=== PATIENT | male | born 1985 | race Caucasian/White ===

== ENCOUNTER 2016-10-28 21:14 | Emergency (ER) | payer SELFPAY ==
[2016-10-28 21:24] VITALS: TEMP 98
--- NOTE | 2016-10-28 21:33 | C.PDOC ---
History Of Present Illness 30 year old male who presents to the ER with a complaint of left hand pain since Wednesday after punching a window. Patient is left hand dominant, denies changes in sensation. No other injury. Time Seen by Provider: 10/28/16 21:29 Chief Complaint (Nursing): Finger,Hand,&Wrist History Per: Patient History/Exam Limitations: no limitations Onset/Duration Of Symptoms: Days Current Symptoms Are (Timing): Still Present Exacerbating Factor(s): Strenuous Use Of Affected Area Recent travel outside of the [place]: No Past Medical History Reviewed: Historical Data, Nursing Documentation, Vital Signs Vital Signs: Last Vital Signs Temp 98 F 10/28/16 23:09 Pulse 80 10/28/16 23:09 Resp 20 10/28/16 23:09 BP 120/80 10/28/16 23:09 Pulse Ox 98 10/28/16 23:09 - Medical History PMH: Hypothyroidism Surgical History: No Surg Hx - [facility] Procedures CLOSURE SKIN & SUBCUTANEOUS NEC (10/30/12) Family History: States: Unknown Family Hx - Social History Hx Tobacco Use: No Hx Alcohol Use: Yes Hx Substance Use: No - Immunization History Hx Tetanus Toxoid Vaccination: No Hx Influenza Vaccination: No Hx Pneumococcal Vaccination: No Review Of Systems Musculoskeletal: Positive for: Hand Pain Neurological: Negative for: Weakness, Numbness Physical Exam - Physical Exam Appears: Well, Non-toxic, No Acute Distress Skin: Warm, Dry Head: Atraumatic, Normacephalic Eye(s): bilateral: Normal Inspection, EOMI Nose: Normal Oral Mucosa: Moist Neck: Normal ROM, Supple Chest: Symmetrical Respiratory: No Accessory Muscle Use Extremity: Normal ROM (x4), Tenderness (to 4th and 5th metacarpal w/ mild swelling and ecchymosis), Capillary Refill (<2 sec) Extremity: Bilateral: Normal ROM Pulses: Left Radial: Normal, Right Radial: Normal Neurological/Psych: Oriented x3, Normal Speech, Normal Cognition, Normal Motor, Normal Sensation ED Course And Treatment O2 Sat by Pulse Oximetry: 97 (Room air) Pulse Ox Interpretation: Normal - Other Rad Left hand x-ray X-Ray: Interpreted by Me, Viewed By Me Interpretation: (+) fifth metacarpal fx with angulation Progress Note: Left hand x-ray ordered. Ulnar gutter splint applied by technology recruiter, reviewed by me; patient instructed to follow up with hand specialist in 1-2 days. Disposition - Disposition Referrals: Ubaldo Parada MD [Staff Provider] - Disposition: HOME/ ROUTINE Disposition Time: 21:51 Condition: STABLE Additional Instructions: Rest, ice and elevate the area. FOllow up with hand specialist in 1-2 days. Instructions: Hand Fracture (ED) Forms: [facility] (Spanish), Work Excuse - Clinical Impression Clinical Impression: Fracture of fifth metacarpal bone - Scribe Statement The provider has reviewed the documentation as recorded by the Scribelzbieta Richardson All medical record entries made by the Scribe were at my direction and personally dictated by me. I have reviewed the chart and agree that the record accurately reflects my personal performance of the history, physical exam, medical decision making, and the department course for this patient. I have also personally directed, reviewed, and agree with the discharge instructions and disposition.
[2016-10-28 23:11] VITALS: BP 120/80; PULSE 80; RESP 20
[2016-10-28 23:39] VITALS: O2SAT 97
--- NOTE | 2016-10-29 08:03 | RAD ---
PROCEDURE: Left Hand Radiographs. HISTORY: pain COMPARISON: None. FINDINGS: BONES: Distal 5th metacarpal metaphyseal fracture, dorsal apical angulation without intra-articular extension noted JOINTS: Normal. No osteoarthritic changes. SOFT TISSUES: Dorsal and ulnar soft tissue swelling OTHER FINDINGS: None. IMPRESSION: Fifth metacarpal fracture
== END 2016-10-28 23:09 | disposition home or self-care (01) ==
LOC: C.ER 21:14
DX: S62.307A Unspecified fracture of fifth metacarpal bone, left hand, initial encounter for closed fracture (principal); W22.09XA Striking against other stationary object, initial encounter; Y92.89 Other specified places as the place of occurrence of the external cause

== ENCOUNTER 2016-10-29 16:33 | Emergency (ER) | payer SELFPAY ==
[2016-10-29 16:53] VITALS: O2SAT 96
--- NOTE | 2016-10-29 17:28 | C.PDOC ---
History Of Present Illness 30 y/o male presents to ED requesting new ortho referral. Pt was seen 10/28 with (+) left hand fracture. Pt states when he called the referral number, he was advised the office does not take his insurance. Denies new symptoms. REQUESTING NEW ORTHO REFERRAL. SEEN 10/28 +L HAND FX. PS WHEN CALLED HAND REFERRAL NUMBER, WAS ADVISED OFFICE DOES NOT TAKE INSURANCE. DENIES NEW SX EXAM NAD EXT LUE +ULNAR GUTTER SPLINT IN PLACE TO MID FOREARM. NO CYANOSIS NO PARESTHESIA Chief Complaint (Nursing): Upper Extremity Problem/Injury History Per: Patient History/Exam Limitations: no limitations Severity: Mild Recent travel outside of the [place]: No Past Medical History Reviewed: Historical Data, Nursing Documentation, Vital Signs Vital Signs: Last Vital Signs Temp 97.8 F 10/29/16 17:35 Pulse 65 10/29/16 17:35 Resp 18 10/29/16 17:35 BP 122/59 L 10/29/16 17:35 Pulse Ox 96 10/29/16 17:35 - Medical History PMH: Hypothyroidism - [facility] Procedures CLOSURE SKIN & SUBCUTANEOUS NEC (10/30/12) Family History: States: Unknown Family Hx - Social History Hx Tobacco Use: No Hx Alcohol Use: Yes Hx Substance Use: No - Immunization History Hx Tetanus Toxoid Vaccination: No Hx Influenza Vaccination: No Hx Pneumococcal Vaccination: No Review Of Systems Constitutional: Negative for: Fever, Chills Neurological: Negative for: Weakness, Numbness Physical Exam - Physical Exam Appears: Non-toxic, No Acute Distress Skin: Warm, Dry, No Rash Head: Atraumatic, Normacephalic Extremity: Other (LUE (+) ulnar gutter slint in place to mid forearm. No cyanosis. No paresthesia.) Neurological/Psych: Oriented x3, Normal Speech, Normal Cognition, Normal Motor, Normal Sensation ED Course And Treatment O2 Sat by Pulse Oximetry: 96 (room air) Pulse Ox Interpretation: Normal Orthopedic Time Performed: 17:27 Time Out: Side verified, Site verified, Patient ID confirmed Procedure: Splint Other:: ULNAR GUTTER Location: Left, Hand Consent obtained: Verbal Performed by: Attending Physician Diagnosis: Fracture Capillary refill: Normal Distal Sensation: Normal Distal Motor Function: Normal Capillary Refill: Normal Compartment: Normal Distal Sensation: Normal Distal Motor Function: Normal Notes:: SPLINT REAPPLIED TO IMMOBILIZE FULL LENGTH FOREARM Progress - Data Reviewed Data Reviewed: Old records Disposition Counseled Patient/Family Regarding: Diagnosis, Need For Followup - Disposition Referrals: [facility] [Outside] [facility] [Outside] Edna Landry MD [Staff Provider] - Disposition: HOME/ ROUTINE Disposition Time: 17:28 Condition: IMPROVED Additional Instructions: FOLLOW UP CLINIC FOR FURTHER MANAGEMENT Prescriptions: oxyCODONE/Acetaminophen [Percocet 5/325 mg Tab] 1 ea PO QID #8 tab Forms: [employer] (Maori), General Discharge Instructions - Clinical Impression Clinical Impression: Referral needed, Fracture of bone - Scribe Statement The provider has reviewed the documentation as recorded by the Yohan King Provider Attestation: All medical record entries made by the Yohan were at my direction and personally dictated by me. I have reviewed the chart and agree that the record accurately reflects my personal performance of the history, physical exam, medical decision making, and the department course for this patient. I have also personally directed, reviewed, and agree with the discharge instructions and disposition.
[2016-10-29 17:45] VITALS: BP 122/59; PULSE 65; RESP 18; TEMP 97.8
== END 2016-10-29 17:35 | disposition home or self-care (01) ==
LOC: C.ER 16:33
DX: S62.92XG Unspecified fracture of left hand, subsequent encounter for fracture with delayed healing (principal); X58.XXXD Exposure to other specified factors, subsequent encounter

== ENCOUNTER 2016-11-04 11:48 | Emergency (ER) | payer MEDICAID, OTHER ==
[2016-11-04 11:52] VITALS: BP 118/70; PULSE 70; RESP 18; TEMP 97.9; O2SAT 97; BMI 29.0
--- NOTE | 2016-11-04 12:35 | C.PDOC ---
History Of Present Illness 30 y/o male presents to ED complaining of left hand pain requesting splint change. Patient was seen at ED on 10/28/16 for left hand injury and was diagnosed with a fracture, was discharged with left hand splint and advised to follow up with Hand specialist. Patient reports he has been unable to follow up with Hand specialist because of insurance issues. Patient denies any new injuries, numbness or other complaints at this time. Time Seen by Provider: 11/04/16 11:57 Chief Complaint (Nursing): Upper Extremity Problem/Injury History Per: Patient History/Exam Limitations: no limitations Onset/Duration Of Symptoms: Days Current Symptoms Are (Timing): Still Present Past Medical History Reviewed: Historical Data, Nursing Documentation, Vital Signs Vital Signs: Last Vital Signs Temp 97.9 F 11/04/16 11:52 Pulse 70 11/04/16 11:52 Resp 18 11/04/16 11:52 BP 118/70 11/04/16 11:52 Pulse Ox 97 11/04/16 12:40 - Medical History PMH: Hypothyroidism - [facility] Procedures CLOSURE SKIN & SUBCUTANEOUS NEC (10/30/12) Family History: States: Unknown Family Hx - Social History Hx Tobacco Use: No Hx Alcohol Use: Yes Hx Substance Use: No - Immunization History Hx Tetanus Toxoid Vaccination: No Hx Influenza Vaccination: No Hx Pneumococcal Vaccination: No Review Of Systems Constitutional: Negative for: Fever, Chills Musculoskeletal: Positive for: Hand Pain Skin: Negative for: Rash Physical Exam - Physical Exam Appears: Non-toxic, No Acute Distress Skin: Normal Color, Warm, No Rash, No Ecchymosis Head: Atraumatic, Normacephalic Eye(s): bilateral: Normal Inspection Neck: Normal ROM Extremity: Normal ROM, Capillary Refill (<2 seconds), Swelling (Upon removal of left hand splint 5th metacarpal mild swelling noted), Other (Splint intact to left hand) Pulses: Left Radial: Normal Neurological/Psych: Oriented x3, Normal Speech, Normal Motor, Normal Sensation Gait: Steady ED Course And Treatment O2 Sat by Pulse Oximetry: 97 (RA) Pulse Ox Interpretation: Normal Medical Decision Making Medical Decision Making: Impression: left hand fx from 10/28/16 needs splint change Plan: * Splint change, ulnar gutter applied by electro mechanical technician and reviewed by me. Progress, Reassess and Dispo: Discussed with patient to contact [facility] to assist with finding ortho. Also provided list of local ortho providers Disposition Counseled Patient/Family Regarding: Diagnosis, Need For Followup - Disposition Referrals: [facility] [Outside] Disposition: HOME/ ROUTINE Disposition Time: 12:35 Condition: STABLE Additional Instructions: You may call [facility] for any assistance [phone] to find local orthopedic provider Refer to list given and try finding ortho or hand specialist Instructions: Splint Care (ED) Forms: [employer] (Serbian) - POA Present On Arrival: None - Clinical Impression Clinical Impression: Aftercare for cast or splint check or change, Fracture of fifth metacarpal bone - PA / ANIMAL BEHAVIORIST / Resident Statement MD/DO has reviewed & agrees with the documentation as recorded. - Scribe Statement The provider has reviewed the documentation as recorded by the Scribe
== END 2016-11-04 12:36 | disposition home or self-care (01) ==
LOC: C.ER 11:48
DX: Z47.89 Encounter for other orthopedic aftercare (principal)